=== PATIENT | female | born 1930 | race African-American/Black ===

== ENCOUNTER 2017-03-27 17:31 | Emergency (ER) | payer MEDICARE ==
[~2017-03-27] VITALS: Ht 160 cm; Wt 54.5 kg
[2017-03-27] MEDS ORDERED: EYE DROP OU (17:45)
[2017-03-27 18:16] LABS: BASOPHILS # (AUTO) 0.02 K/uL (0.00-0.20); BASOPHILS % (AUTO) 0.4 % (0.0-2.0); EOSINOPHILS # (AUTO) 0.09 K/uL (0.00-0.70); EOSINOPHILS % (AUTO) 1.61 % (1.0-6.0); LYMPHOCYTES # (AUTO) 2.1 K/uL (1.0-4.8); MEAN CORPUSCULAR HEMOGLOBIN 33.8 pg (26.0-34.0); MEAN CORPUSCULAR HGB CONC 33.3 G/dL (31.0-37.0); MEAN CORPUSCULAR VOLUME 102 fL (80-100); MONOCYTES # (AUTO) 0.5 K/uL (0.1-1.0); MONOCYTES % (AUTO) 8.2 % (2.0-9.0); NEUTROPHILS # (AUTO) 2.9 K/uL (1.8-7.7); NEUTROPHILS % (AUTO) 51.8 % (40.0-70.0); PLATELET COUNT (AUTO) 270 K/uL (150-450); RED BLOOD CELL COUNT(AUTO) 2.66 MIL/uL (4.00-5.20); RED CELL DISTRIBUTION WIDTH 13.3 % (11.5-14.5); WHITE BLOOD COUNT (AUTO) 5.6 K/uL (4.5-11.0)
[2017-03-27 18:31] LABS: CALCIUM, TOTAL 9.9 mg/dL (8.8-10.5); CREATININE 6.63 mg/dL (0.60-1.30)
[2017-03-27 18:43] LABS: BILIRUBIN,TOTAL 0.4 mg/dL (0.1-1.0); TOTAL PROTEIN, SERUM 7.5 g/dL (6.4-8.2)
[2017-03-27 19:03] LABS: RBC MORPHOLOGY COMMENT ABNORMAL RBC MORPH
[2017-03-27 19:29] VITALS: BP 140/92
== END 2017-03-27 19:43 | disposition home or self-care (01) ==
LOC: EMS 17:33
DX: I12.9 Hypertensive chronic kidney disease with stage 1 through stage 4 chronic kidney disease, or unspecified chronic kidney disease (principal); E87.6 Hypokalemia; Z88.0 Allergy status to penicillin
CPT/HCPCS: 93005; 99285

== ENCOUNTER 2017-04-24 21:31 | Emergency (ER) | payer MEDICARE ==
[~2017-04-24] VITALS: Ht 162.6 cm; Wt 56.8 kg
[~2017-04-24 21:31] MED LIST: EYE DROP OU
[2017-04-24] MEDS ORDERED: SODI650T PO (21:52)
[2017-04-24] MEDS ORDERED: TERA1 PO (21:52)
[2017-04-24] MEDS ORDERED: AMLO-512 PO (21:52)
[2017-04-24 22:51] LABS: APPEARANCE,URINE CLEAR (CLEAR); GLUCOSE, URINE (UA) NEGATIVE (NEGATIVE); KETONES,URINE NEGATIVE (NEGATIVE); LEUKOCYTE ESTERASE ,URINE TRACE (NEGATIVE); OCCULT BLOOD,URINE SMALL (NEGATIVE); PH,URINE 6.5 (5.0-8.0); PROTEIN,URINE SEE CONFIRM (NEGATIVE)
[2017-04-24 22:53] LABS: ADD UA MICROSCOPIC YES
[2017-04-24 23:06] LABS: SULFOSALICYLIC ACID,URINE 2+ (Negative)
[2017-04-24 23:07] LABS: SQUAMOUS EPITHELIAL CELL,UR Few /LPF (None Seen)
[2017-04-24 23:08] LABS: RBC,URINE 0-2 /HPF (0-2)
[2017-04-24 23:28] LABS: BASOPHILS % (AUTO) 0.2 % (0.0-2.0); EOSINOPHILS % (AUTO) 1.9 % (1.0-6.0); LYMPHOCYTES # (AUTO) 1.5 K/uL (1.0-4.8); LYMPHOCYTES % (AUTO) 23.6 % (22.0-44.0); MEAN CORPUSCULAR HEMOGLOBIN 33.6 pg (26.0-34.0); MEAN CORPUSCULAR HGB CONC 33.8 G/dL (31.0-37.0); MEAN CORPUSCULAR VOLUME 100 fL (80-100); MONOCYTES # (AUTO) 0.4 K/uL (0.1-1.0); MONOCYTES % (AUTO) 6.7 % (2.0-9.0); NEUTROPHILS # (AUTO) 4.4 K/uL (1.8-7.7); NEUTROPHILS % (AUTO) 67.6 % (40.0-70.0); PLATELET COUNT (AUTO) 254 K/uL (150-450); PROTHROMBIN TIME 10.9 SEC (9.4-11.6); RED BLOOD CELL COUNT(AUTO) 1.88 MIL/uL (4.00-5.20); RED CELL DISTRIBUTION WIDTH 13.8 % (11.5-14.5); WHITE BLOOD COUNT (AUTO) 6.5 K/uL (4.5-11.0)
[2017-04-24 23:33] LABS: HEMATOCRIT 18.7 % (36-46); HEMOGLOBIN 6.3 g/dL (12.0-16.0)
[2017-04-24 23:34] LABS: ANION GAP 16 mmol/L (8-16); CALCIUM, TOTAL 9.2 mg/dL (8.8-10.5); CARBON DIOXIDE 20 mmol/L (22-29); CHLORIDE 104 mmol/L (98-107); CREATININE 11.89 mg/dL (0.60-1.30); GLOMERULAR FILTR. RATE CALC 4 mL/min (>60); POTASSIUM 5.1 mmol/L (3.5-5.1); SODIUM SERUM 140 mmol/L (136-145); UREA NITROGEN, BLOOD 93 mg/dL (7-18)
[2017-04-24 23:50] LABS: B-TYPE NATRIURETIC PEPTIDE 472 pg/mL (0-100)
[2017-04-24 23:59] LABS: ALANINE AMINOTRANSFERASE 23 U/L (12-78); ALBUMIN 3.6 g/dL (3.4-5.0); ASPARTATE AMINOTRANSFERASE 15 U/L (15-37); BILIRUBIN,TOTAL 0.3 mg/dL (0.1-1.0); CREATINE KINASE MB 2.1 ng/mL (0-5); CREATINE KINASE, TOTAL 129 U/L (26-192); TOTAL PROTEIN, SERUM 6.8 g/dL (6.4-8.2)
[2017-04-25] MEDS ORDERED: ONDANSETRON HCL 4 MG/2 ML VIAL IVP PRN (00:30)
[2017-04-25] MEDS ORDERED: 0.9% SODIUM CHLORIDE 10 ML SYRINGE IVP PRN (00:30)
[2017-04-25] MEDS ORDERED: ACETAMINOPHEN 325 MG TABLET PO PRN (00:30)
[2017-04-25 01:30] VITALS: BP 125/77
[2017-04-25 01:45] VITALS: BP 133/67
[2017-04-25 02:00] VITALS: BP 141/70
[2017-04-25 02:32] VITALS: BP 125/68
[2017-04-25 03:00] VITALS: BP 125/70
== END 2017-04-25 04:20 | disposition short-term general hospital (02) ==
LOC: EMS 21:33
DX: D64.9 Anemia, unspecified (principal); I12.9 Hypertensive chronic kidney disease with stage 1 through stage 4 chronic kidney disease, or unspecified chronic kidney disease; N18.9 Chronic kidney disease, unspecified; Z88.0 Allergy status to penicillin
CPT/HCPCS: 36415; 36430; 71010; 80053; 81001; 82550; 82553; 83880; 84484; 85025; 85610; 85730; 86850; 86900; 86901; 86920; 87086; 93005; 99285; P9016